=== PATIENT | female | born 2000 | race Caucasian/White ===

== ENCOUNTER 2020-04-26 20:34 | Inpatient (IN) | payer MEDICAID ==
[~2020-04-26] VITALS: Ht 160 cm; Wt 97.7 kg
[~2020-04-26 20:34] MED LIST: AUGMENTIN 875-11 TAB PO; CIPRO250 MG PO; PHENAZOPYRIDIN100 MG PO; SLEEPING MED; ZOLOFT100 MG PO
[2020-04-26] MEDS ORDERED: CARAFATE1 G PO (20:41)
[2020-04-26] MEDS ORDERED: SEROQUEL200 MG PO (20:41)
[2020-04-26] MEDS ORDERED: OMEPRAZOLE20 M1 PO (20:41)
[2020-04-26 21:34] VITALS: BP 123/83
[2020-04-26 21:36] LABS: BASOPHILS 0.3 % (0-2); EOSINOPHILS 0.7 % (0-7); HEMATOCRIT 38.9 % (36.0-48.0); HEMOGLOBIN 12.7 g/dL (12-16); IMMATURE GRANULOCYTES 0.4 % (0-5); LYMPHOCYTE ABS# 2.66 10x3/uL (1.18-3.74); LYMPHOCYTES 24.4 % (15-50); MCH 28.2 pg (26.0-34.0); MCHC 32.6 g/dL (31.0-37.0); MCV 86.3 fL (80.0-100.0); MEAN PLATELET VOLUME 8.6 fL (7.4-10.4); MONOCYTES 11.2 % (2-11); NEUTROPHIL ABS# 6.85 10x3/uL (1.56-6.13); PLATELET COUNT 336 10x3/uL (130-400); RBC 4.51 10x6/uL (4.00-5.40); RDW 13.4 % (11.5-14.5); WBC 10.9 10x3/uL (4.8-10.8)
[2020-04-26 21:42] LABS: PROTIME 12.2 SECONDS (11.6-15.0)
[2020-04-26 21:43] LABS: APTT 27.9 SECONDS (22.8-39.4)
[2020-04-26 21:44] LABS: D-DIMER-QUANTITATIVE 1.56 ug/mLFEU (0.20-0.54)
[2020-04-26 21:46] LABS: CALC OSMOLALITY 280 mosm/kg (275-300); CALCIUM 8.3 mg/dL (8.5-10.1); CARBON DIOXIDE 25.5 mmol/L (21.0-32.0); CHLORIDE - SERUM 106 mmol/L (98-107); GLUCOSE 87 mg/dL (74-106); HCG SERUM NEGATIVE (NEGATIVE); POTASSIUM - SERUM 3.5 mmol/L (3.5-5.1); SODIUM 141 mmol/L (136-145); UREA NITROGEN 14 mg/dL (7-18); eGFR NON AFRICAN AMERICAN 75 mL/min (90-120)
[2020-04-26 21:55] LABS: ALBUMIN 2.3 g/dL (3.4-5.0); ALKALINE PHOSPHATASE 93 U/L (30-120); ALT (SGPT) 30 U/L (10-68); PROTEIN - SERUM 7.2 g/dL (6.4-8.2)
[2020-04-26 21:57] LABS: BILIRUBIN - TOTAL 0.05 mg/dL (0.2-1.3); TROPONIN-I < 0.017 ng/mL (0.000-0.060)
[2020-04-26 22:34] VITALS: BP 133/61
[2020-04-26 23:34] VITALS: BP 133/61
[2020-04-27] VITALS (7 sets, daily range): BP systolic 113–142; BP diastolic 62–100; BMI 38.1
[2020-04-27] MEDS ORDERED: VIBRAMYCIN 100100 MG PO (00:59)
[2020-04-27] MEDS ORDERED: SPRINTEC 28 DA1 EAC1 PO (01:00)
[2020-04-27] MEDS ORDERED: COLACE100 MG PO (01:00)
[2020-04-27] MEDS ORDERED: SYMBICORT 80-10.2 GM INH (01:25)
[2020-04-27] MEDS ORDERED: ALBUTEROL SULF8.5 GM INH (01:25)
--- NOTE | 2020-04-27 02:55 | NUR ---
SUICIDE RISK ASSESSMENT COMPLETED. PT IN ACUTE PAIN DUE TO PE. NO SI FOR 2 YEARS. CURRENTLY HAS A BOYFRIEND AND TAKES CARE OF HER BROTHER. NO SELF CUTTING FOR 2 YEARS. DENIES SI. RESOURCE SHEET GIVEN TO PATIENT. RESOURCES REVIEWED WITH PATIENT AND SHE VERBALIZED UNDERSTANDING.
[2020-04-27 08:46] LABS: ALBUMIN 2.2 g/dL (3.4-5.0); ALKALINE PHOSPHATASE 83 U/L (30-120); ALT (SGPT) 28 U/L (10-68); CALC OSMOLALITY 272 mosm/kg (275-300); CHLORIDE - SERUM 102 mmol/L (98-107); CREATININE - SERUM 0.9 mg/dL (0.6-1.3); GLUCOSE 106 mg/dL (74-106); MAGNESIUM - SERUM 1.7 mg/dL (1.8-2.4); PHOSPHOROUS 3.4 mg/dL (2.5-4.9); POTASSIUM - SERUM 3.4 mmol/L (3.5-5.1); PROTEIN - SERUM 6.3 g/dL (6.4-8.2); SODIUM 137 mmol/L (136-145); UREA NITROGEN 11 mg/dL (7-18); eGFR NON AFRICAN AMERICAN 85 mL/min (90-120)
[2020-04-27 09:22] LABS: BASOPHILS 0.1 % (0-2); EOSINOPHILS 0.4 % (0-7); HEMATOCRIT 35.6 % (36.0-48.0); HEMOGLOBIN 11.8 g/dL (12-16); IMMATURE GRANULOCYTES 0.4 % (0-5); LYMPHOCYTE ABS# 2.39 10x3/uL (1.18-3.74); LYMPHOCYTES 20.3 % (15-50); MCH 28.4 pg (26.0-34.0); MCHC 33.1 g/dL (31.0-37.0); MCV 85.6 fL (80.0-100.0); MEAN PLATELET VOLUME 9.1 fL (7.4-10.4); MONOCYTES 10.3 % (2-11); NEUTROPHIL ABS# 8.08 10x3/uL (1.56-6.13); NEUTROPHILS 68.5 % (40-80); PLATELET COUNT 283 10x3/uL (130-400); RBC 4.16 10x6/uL (4.00-5.40); RDW 13.5 % (11.5-14.5); WBC 11.8 10x3/uL (4.8-10.8)
--- NOTE | 2020-04-27 09:26 | NUR ---
PER DR. ALONSO D/C MORPHINE SINCE PT STATES THAT IS NOT HELPING WITH HER PAIN. START 2MG OF DILAUDID PO Q4HPRN.
[2020-04-27 09:54] LABS: COMPLEMENT C4 24.7 mg/dL (17.4-52.2)
--- NOTE | 2020-04-27 13:34 | NUR ---
2MG OF DILAUDID GIVEN FOR PAIN LEVEL OF 8/10. ALSO HELPED PT UP TO CHAIR. PT DENIES ANY OTHER NEEDS AT THIS TIME. CALL LIGHT IN REACH.
--- NOTE | 2020-04-27 16:45 | NUR ---
PT STATES THAT PO DILAUDID IS NOT HELPING, WANTS TO KNOW IF SHE CAN HAVE THE MORPHINE INSTEAD. NOTIFIED JESSICA CHO AND HE STATED TO D/C DILAUDID AND START 2MG OF MORPHINE Q6PRN.
--- NOTE | 2020-04-27 19:41 | NUR ---
RECIEVED UP IN BED WITH EYES OPEN AND TV ON. COMPLAINING ABOUT BACK AND RIB PAIN. ASKED THIS NURSE TO CALL AND SEE IF SHE COULD HAVE SOMETHING FOR PAIN. SAID MORPHINE DOES'NT HELP HER AT ALL. CALLED GUILLE NINO WITH NEW ORDER FOR DILAUDID 0.25MG IV Q 6HRS PRN. REPORTED N.O TO PT AND SHE STATED " THAT STUFF DON'T WORK EITHER".
[2020-04-28 00:29] VITALS: BP 122/63
[2020-04-28 05:24] LABS: BASOPHILS 0.1 % (0-2); EOSINOPHILS 0.5 % (0-7); HEMOGLOBIN 11.4 g/dL (12-16); IMMATURE GRANULOCYTES 0.5 % (0-5); LYMPHOCYTE ABS# 2.14 10x3/uL (1.18-3.74); LYMPHOCYTES 24.3 % (15-50); MCH 27.8 pg (26.0-34.0); MCHC 32.6 g/dL (31.0-37.0); MCV 85.4 fL (80.0-100.0); MEAN PLATELET VOLUME 8.7 fL (7.4-10.4); MONOCYTES 12.3 % (2-11); NEUTROPHILS 62.3 % (40-80); PLATELET COUNT 299 10x3/uL (130-400); RDW 13.4 % (11.5-14.5)
[2020-04-28 05:37] LABS: WBC 8.8 10x3/uL (4.8-10.8)
[2020-04-28 05:38] VITALS: BP 113/73
[2020-04-28 05:45] LABS: CALC OSMOLALITY 271 mosm/kg (275-300); CARBON DIOXIDE 24.5 mmol/L (21.0-32.0); CHLORIDE - SERUM 102 mmol/L (98-107); CREATININE - SERUM 0.9 mg/dL (0.6-1.3); GLUCOSE 111 mg/dL (74-106); MAGNESIUM - SERUM 1.7 mg/dL (1.8-2.4); PHOSPHOROUS 3.3 mg/dL (2.5-4.9); POTASSIUM - SERUM 3.5 mmol/L (3.5-5.1); SODIUM 136 mmol/L (136-145); UREA NITROGEN 9 mg/dL (7-18); eGFR NON AFRICAN AMERICAN 85 mL/min (90-120)
[2020-04-28 08:39] VITALS: BP 121/64
[2020-04-28 08:50] VITALS: Ht 160 cm; Wt 97.7 kg
[2020-04-28 09:13] LABS: ANA REFLEX - DIRECT Negative (Negative)
[2020-04-28 11:11] LABS: ACLA - IGG AB <9 GPL U/mL (0-14); ACLA - IGM AB <9 MPL U/mL (0-12)
[2020-04-28 12:06] VITALS: BP 122/57
[2020-04-28 15:00] VITALS: BP 126/75
[2020-04-28 21:17] VITALS: BP 137/68
--- NOTE | 2020-04-28 21:22 | NUR ---
REPORT RECEIVED, WILL CONT POC. PT A&O, UP IN BED ON PHONE WITH FAMILY. NO S/S OF DISTRESS OBSERVED. RR EVEN & UNLABORED ON 3L NC. NOTED DIMINISHED LUNG SOUNDS IN RLL. PT REPORTS PAIN IN THIS AREA. WILL ADMIN PAIN MED PER EMAR. BED LOCKED AND LOWERED, CL IN REACH. ASSESSMENT COMPLETED AT THIS TIME. WILL CONT TO MONITOR.
[2020-04-29 01:46] VITALS: BP 120/74
[2020-04-29 05:40] VITALS: BP 120/67
[2020-04-29 06:26] LABS: BASOPHILS 0.1 % (0-2); EOSINOPHILS 1.1 % (0-7); HEMATOCRIT 37.7 % (36.0-48.0); HEMOGLOBIN 12.5 g/dL (12-16); IMMATURE GRANULOCYTES 0.6 % (0-5); LYMPHOCYTE ABS# 2.23 10x3/uL (1.18-3.74); LYMPHOCYTES 25.5 % (15-50); MCH 28.3 pg (26.0-34.0); MCHC 33.2 g/dL (31.0-37.0); MCV 85.3 fL (80.0-100.0); MONOCYTES 9.7 % (2-11); PLATELET COUNT 310 10x3/uL (130-400); RBC 4.42 10x6/uL (4.00-5.40); RDW 13.2 % (11.5-14.5); WBC 8.7 10x3/uL (4.8-10.8)
[2020-04-29 06:34] LABS: CALC OSMOLALITY 267 mosm/kg (275-300); CALCIUM 8.5 mg/dL (8.5-10.1); CHLORIDE - SERUM 102 mmol/L (98-107); CREATININE - SERUM 0.9 mg/dL (0.6-1.3); GLUCOSE 106 mg/dL (74-106); MAGNESIUM - SERUM 2.1 mg/dL (1.8-2.4); PHOSPHOROUS 3.9 mg/dL (2.5-4.9); POTASSIUM - SERUM 3.7 mmol/L (3.5-5.1); SODIUM 135 mmol/L (136-145); UREA NITROGEN 8 mg/dL (7-18); eGFR NON AFRICAN AMERICAN 85 mL/min (90-120)
[2020-04-29 07:54] VITALS: BP 136/76
[2020-04-29] MEDS ORDERED: ELIQUIS5 MG PO (08:58)
--- NOTE | 2020-04-29 09:47 | MORECARE ---
CASE MANAGEMENT DISCHARGE SUMMARY PATIENT: BRITTANEY BAÑUELOS UNIT: [id number] ADM DATE: 04/27/20 AGE: 19 : 99 SEX: F ROOM/BED: D.[facility] AUTHOR: TRENT,DOC PHYSICIAN: REFERRING PHYSICIAN: SAUL TREADWELL MD DATE OF SERVICE: 04/29/20 Case Management Discharge Planning Summary DCP REVIEW SUMMARY ANTICIPATED D/C DATE: 04/29/2020 EXPECTED LOS : 2 CASE STATUS: DCP Initiated INITIAL REVIEW: 04/29/2020 INITIAL REVIEWER: Susan Ruiz FINAL DISCHARGE DISPOSITION: : FINAL REVIEWER: FINAL REVIEW DATE: DCP Focus Questions & Answers - Added on: QUESTION: ANSWER : PATIENT: BRITTANEY BAÑUELOS ENCOUNTER: [id number] MEDICAL RECORD#: [id number] ADMISSION DATE: 04/27/2020 DISCHARGE DATE: ATTENDING MD: : AGE: 19 MARITAL STATUS: S DC PLAN ID: [id number] FACILITY: [facility] PRINTED ON: 04/29/20 9:47 CT All edits/amendments must be made on the electronic document DICTATION DATE: 04/29/20946 RUBBER BALL FINISHER: DM 04/29/20946 RPT#: [id number] DC DATE: STATUS: ADM IN [facility] [address] [place] [address] END OF REPORT
--- NOTE | 2020-04-29 09:59 | MORECARE ---
CASE MANAGEMENT DISCHARGE SUMMARY PATIENT: BRITTANEY BAÑUELOS UNIT: [id number] ADM DATE: 04/27/20 AGE: 19 : 99 SEX: F ROOM/BED: D.5142 AUTHOR: TRENT,DOC PHYSICIAN: REFERRING PHYSICIAN: SAUL TREADWELL MD DATE OF SERVICE: 04/29/20 Case Management Discharge Planning Summary COMMENTS ENTERED DATE: 04/29/20 9:51 CT COMMENT TYPE: Discharge Planning REVIEWER: Susan Ruiz CM met with patient to discuss discharge planning/needs, she is alone in the room. She has oxygen on at 2 liters NC, I have asked RT for a walk test. She states she is independent with all care. She lives with her boyfriend and 2 others and feels it is safe to discharge back home. She states is her PCP. She uses [facility] on [address] for her medication. 30 day free trial of Eliquis coupon given to patient and explained to use on first Rx fill only. She declines further needs at this time. Home today. DCP REVIEW SUMMARY ANTICIPATED D/C DATE: 04/29/2020 EXPECTED LOS : 2 CASE STATUS: DCP Initiated INITIAL REVIEW: 04/29/2020 INITIAL REVIEWER: Susan Ruiz FINAL DISCHARGE DISPOSITION: : FINAL REVIEWER: FINAL REVIEW DATE: DCP Focus Questions & Answers DCP REV -DCP Review Added on: 04/29/20 9:48 am QUESTION: ANSWER DCP Screen High Risk Factors: : None Walking limitation: Patient stated self rated walking limitation present? : No Age: : 17 - 43 Prior living environment: : Lives with others Disability ranking: : Grade 1: No significant disability DCP Evaluation Patient's ability to cope with chronic illness : d. No chronic illness Mental health screen: : No mental health history Would patient like to participate in any Care Coordination programs (if applicable): : Not applicable Patient gives permission to discuss discharge plans with: (name, relationship and number) : Oniel julian - [phone] Physical Status: : Independent with ADL's Baseline cognitive status: : *Oriented to person, place, situation, time and present Living Arrangements: : Home with Spouse/Significant Other Living arrangements comments: : Lives with boyfriend and 2 others Pharmacy name(s): : [facility] on [address] Does Patient have transportation to get home and to follow-up medical appointments when discharged from the hospital? : Yes Comments: : Boyfriend to drive her Equipment in use: : None Patient's current cognitive status: : *Oriented to person, place, situation, time and present Functional screen assessment: : No issues identified Patient with capacity for self-care or can be cared for in same environment as prior to hospitalization? : Yes Is there a likelihood that the patient will require additional services to return to the preadmission environment? : No Results of this evaluation have been discussed with: : Patient DCP Re-evaluation Would patient like to participate in any Care Coordination programs (if applicable): : Not applicable PATIENT: BRITTANEY BAÑUELOS ENCOUNTER: [id number] MEDICAL RECORD#: [id number] ADMISSION DATE: 04/27/2020 DISCHARGE DATE: ATTENDING MD: ASA: AGE: 19 MARITAL STATUS: S DC PLAN ID: [id number] FACILITY: [facility] PRINTED ON: 04/29/20 9:58 CT All edits/amendments must be made on the electronic document DICTATION DATE: 04/29/20957 PHOTOGRAPHIC EQUIPMENT MECHANIC: GENE 04/29/20957 RPT#: [id number] DC DATE: STATUS: ADM IN [facility] [address] [place] [address] END OF REPORT
--- NOTE | 2020-04-29 10:09 | NUR ---
02 SAT 98% ON RA AT REST AND 95% DURING AMBULATION. IV AND TELEMTETRY DCD DC PLANS GIVEN. UNDERSTANDING VOICED.
--- NOTE | 2020-04-29 10:21 | NUR ---
ESCORTED TO CAR BY W/C.
--- NOTE | 2020-04-29 10:23 | MORECARE ---
CASE MANAGEMENT DISCHARGE SUMMARY PATIENT: BRITTANEY BAÑUELOS UNIT: [id number] ADM DATE: 04/27/20 AGE: 19 : 99 SEX: F ROOM/BED: D.3102 AUTHOR: TRENT,DOC PHYSICIAN: REFERRING PHYSICIAN: SAUL TREADWELL MD DATE OF SERVICE: 04/29/20 Case Management Discharge Planning Summary COMMENTS ENTERED DATE: 04/29/20 9:51 CT COMMENT TYPE: Discharge Planning REVIEWER: Susan Ruiz CM met with patient to discuss discharge planning/needs, she is alone in the room. She has oxygen on at 2 liters NC, I have asked RT for a walk test. She states she is independent with all care. She lives with her boyfriend and 2 others and feels it is safe to discharge back home. She states is her PCP. She uses [facility] on [address] for her medication. 30 day free trial of Eliquis coupon given to patient and explained to use on first Rx fill only. She declines further needs at this time. Home today. DCP REVIEW SUMMARY ANTICIPATED D/C DATE: 04/29/2020 EXPECTED LOS : 2 CASE STATUS: DCP Initiated INITIAL REVIEW: 04/29/2020 INITIAL REVIEWER: Susan Ruiz FINAL DISCHARGE DISPOSITION: : FINAL REVIEWER: FINAL REVIEW DATE: DCP Focus Questions & Answers DCP REV -DCP Review Added on: 04/29/20 9:48 am QUESTION: ANSWER DCP Screen High Risk Factors: : None Walking limitation: Patient stated self rated walking limitation present? : No Age: : 17 - 43 Prior living environment: : Lives with others Disability ranking: : Grade 1: No significant disability DCP Evaluation Patient's ability to cope with chronic illness : d. No chronic illness Mental health screen: : No mental health history Would patient like to participate in any Care Coordination programs (if applicable): : Not applicable Patient gives permission to discuss discharge plans with: (name, relationship and number) : Oniel julian - [phone] Physical Status: : Independent with ADL's Baseline cognitive status: : *Oriented to person, place, situation, time and present Living Arrangements: : Home with Spouse/Significant Other Living arrangements comments: : Lives with boyfriend and 2 others Pharmacy name(s): : [facility] on [address] Does Patient have transportation to get home and to follow-up medical appointments when discharged from the hospital? : Yes Comments: : Boyfriend to drive her Equipment in use: : None Patient's current cognitive status: : *Oriented to person, place, situation, time and present Functional screen assessment: : No issues identified Patient with capacity for self-care or can be cared for in same environment as prior to hospitalization? : Yes Is there a likelihood that the patient will require additional services to return to the preadmission environment? : No Results of this evaluation have been discussed with: : Patient DCP Re-evaluation Would patient like to participate in any Care Coordination programs (if applicable): : Not applicable PATIENT: BRITTANEY BAÑUELOS ENCOUNTER: [id number] MEDICAL RECORD#: [id number] ADMISSION DATE: 04/27/2020 DISCHARGE DATE: 04/29/2020 ATTENDING MD: ASA: AGE: 19 MARITAL STATUS: S DC PLAN ID: [id number] FACILITY: [facility] PRINTED ON: 04/29/20 10:23 CT All edits/amendments must be made on the electronic document DICTATION DATE: 04/29/20 1023 BAIT TIER: DM 04/29/20 1023 RPT#: [id number] DC DATE:04/29/20 STATUS: DIS IN [facility] [address] [place] [address] END OF REPORT
[2020-04-29 13:12] LABS: MITOCHONDRIAL ANTIBODY <20.0 Units (0.0-20.0)
[2020-04-29 16:10] LABS: ANCA - ANTIMYELOPEROXIDASE <9.0 U/mL (0.0-9.0); ANCA - ANTIPROTEINASE 3 11.2 U/mL (0.0-3.5); ANCA - ATYPICAL <1:20 titer (Neg:<1:20); ANCA - CYTOPLASMIC <1:20 titer (Neg:<1:20); ANCA - PERINUCLEAR <1:20 titer (Neg:<1:20)
--- NOTE | 2020-04-29 17:22 | MORECARE ---
CASE MANAGEMENT DISCHARGE SUMMARY PATIENT: BRITTANEY BAÑUELOS UNIT: [id number] ADM DATE: 04/27/20 AGE: 19 : 99 SEX: F ROOM/BED: D.1212 AUTHOR: TRENT,DOC PHYSICIAN: REFERRING PHYSICIAN: SAUL TREADWELL MD DATE OF SERVICE: 04/29/20 Case Management Discharge Planning Summary COMMENTS ENTERED DATE: 04/29/20 9:51 CT COMMENT TYPE: Discharge Planning REVIEWER: Susan Ruiz CM met with patient to discuss discharge planning/needs, she is alone in the room. She has oxygen on at 2 liters NC, I have asked RT for a walk test. She states she is independent with all care. She lives with her boyfriend and 2 others and feels it is safe to discharge back home. She states is her PCP. She uses [facility] on [address] for her medication. 30 day free trial of Eliquis coupon given to patient and explained to use on first Rx fill only. She declines further needs at this time. Home today. DCP REVIEW SUMMARY ANTICIPATED D/C DATE: 04/29/2020 EXPECTED LOS : 2 CASE STATUS: DCP Initiated INITIAL REVIEW: 04/29/2020 INITIAL REVIEWER: Susan Ruiz FINAL DISCHARGE DISPOSITION: : FINAL REVIEWER: FINAL REVIEW DATE: DCP Focus Questions & Answers DCP REV -DCP Review Added on: 04/29/20 9:48 am QUESTION: ANSWER DCP Screen High Risk Factors: : None Walking limitation: Patient stated self rated walking limitation present? : No Age: : 17 - 43 Prior living environment: : Lives with others Disability ranking: : Grade 1: No significant disability DCP Evaluation Patient's ability to cope with chronic illness : d. No chronic illness Mental health screen: : No mental health history Would patient like to participate in any Care Coordination programs (if applicable): : Not applicable Patient gives permission to discuss discharge plans with: (name, relationship and number) : Oniel julian - [phone] Physical Status: : Independent with ADL's Baseline cognitive status: : *Oriented to person, place, situation, time and present Living Arrangements: : Home with Spouse/Significant Other Living arrangements comments: : Lives with boyfriend and 2 others Pharmacy name(s): : [facility] on [address] Does Patient have transportation to get home and to follow-up medical appointments when discharged from the hospital? : Yes Comments: : Boyfriend to drive her Equipment in use: : None Patient's current cognitive status: : *Oriented to person, place, situation, time and present Functional screen assessment: : No issues identified Patient with capacity for self-care or can be cared for in same environment as prior to hospitalization? : Yes Is there a likelihood that the patient will require additional services to return to the preadmission environment? : No Results of this evaluation have been discussed with: : Patient DCP Re-evaluation Would patient like to participate in any Care Coordination programs (if applicable): : Not applicable PATIENT: BRITTANEY BAÑUELOS ENCOUNTER: [id number] MEDICAL RECORD#: [id number] ADMISSION DATE: 04/27/2020 DISCHARGE DATE: 04/29/2020 ATTENDING MD: ASA: AGE: 19 MARITAL STATUS: S DC PLAN ID: [id number] FACILITY: [facility] PRINTED ON: 04/29/20 17:22 CT All edits/amendments must be made on the electronic document DICTATION DATE: 04/29/201721 LAB DIRECTOR: GENE 04/29/201721 RPT#: [id number] DC DATE:04/29/20 STATUS: DIS IN [facility] [address] [place] [address] END OF REPORT
[2020-04-30 03:08] LABS: LUPUS - INTERPRETATION Comment: (()); LUPUS - THROMBIN TIME 15.6 sec (0.0-23.0); LUPUS - dRVVT 33.4 sec (0.0-47.0); PTT-LA 40.1 sec (0.0-51.9)
[2020-04-30 09:13] LABS: PROTEIN S - FREE 45 % (57-157); PROTEIN S - FUNCTIONAL 40 % (63-140); PROTEIN S - TOTAL 68 % (60-150)
[2020-04-30 15:12] LABS: FACTOR II DNA ANALYSIS Negative (())
[2020-05-01 09:12] LABS: ANTITHROMBIN III ACTIVITY 109 % (75-135); PLASMINOGEN ACTIVITY 150 % (70-150)
[2020-05-01 13:12] LABS: PROTEIN C - ANTIGEN 112 % (60-150); PROTEIN C - FUNCTIONAL 138 % (73-180)
== END 2020-04-29 10:22 | disposition home or self-care (01) | DRG 175 ==
LOC: D.ER 20:34 → D.M2 04-27 00:21
PROVIDERS: Family Medicine; Internal Medicine Hematology & Oncology; ADMIT Family Medicine; ATTEND Family Medicine
DX: I26.99 Other pulmonary embolism without acute cor pulmonale (principal); J18.9 Pneumonia, unspecified organism; A04.8 Other specified bacterial intestinal infections; F41.8 Other specified anxiety disorders; J45.909 Unspecified asthma, uncomplicated; F43.12 Post-traumatic stress disorder, chronic

== ENCOUNTER 2020-05-04 23:49 | Emergency (ER) | payer MEDICAID ==
[~2020-05-04] VITALS: Ht 160 cm; Wt 97.7 kg
[~2020-05-04 23:49] MED LIST changes: +ALBUTEROL SULF8.5 GM INH; +CARAFATE1 G PO; +COLACE100 MG PO; +ELIQUIS5 MG PO; +OMEPRAZOLE20 M1 PO; +SEROQUEL200 MG PO; +SPRINTEC 28 DA1 EAC1 PO; +SYMBICORT 80-10.2 GM INH; +VIBRAMYCIN 100100 MG PO
[2020-05-04 23:52] VITALS: Ht 160 cm; Wt 97.7 kg
[2020-05-04] MEDS ORDERED: PEPCID40 MG PO (23:56)
[2020-05-04] MEDS ORDERED: FLAGYL 375375 MG PO (23:57)
[2020-05-04] MEDS ORDERED: PEPTO-BISMOL262 M1 PO (23:58)
[2020-05-05 01:19] VITALS: BP 137/84
== END 2020-05-05 01:20 | disposition home or self-care (01) ==
LOC: D.ER 23:49
DX: I26.99 Other pulmonary embolism without acute cor pulmonale (principal); J45.909 Unspecified asthma, uncomplicated

== ENCOUNTER → 2020-05-08 08:09 | Outpatient (CLI) | payer MEDICAID ==
[2020-05-04 23:52] VITALS: BMI 38.1
[~2020-05-08 08:09] MED LIST changes: +FLAGYL 375375 MG PO; +PEPCID40 MG PO; +PEPTO-BISMOL262 M1 PO
== END | disposition home or self-care (01) ==
LOC: D.US
PROVIDERS: ATTEND Internal Medicine Gastroenterology
DX: R11.0 Nausea (principal); R10.84 Generalized abdominal pain

== ENCOUNTER → 2020-06-17 17:08 | Outpatient (CLI) | payer MEDICAID ==
[2020-05-04 23:52] VITALS: BMI 38.1
[2020-06-17 17:31] LABS: HCG SERUM POSITIVE (NEGATIVE)
[2020-06-17 17:42] LABS: ALBUMIN 2.8 g/dL (3.4-5.0); ALKALINE PHOSPHATASE 88 U/L (30-120); ALT (SGPT) 44 U/L (10-68); BILIRUBIN - TOTAL 0.15 mg/dL (0.2-1.3); CARBON DIOXIDE 21.9 mmol/L (21.0-32.0); CHLORIDE - SERUM 105 mmol/L (98-107); POTASSIUM - SERUM 4.2 mmol/L (3.5-5.1); PROTEIN - SERUM 7.3 g/dL (6.4-8.2); SODIUM 137 mmol/L (136-145); UREA NITROGEN 12 mg/dL (7-18)
[2020-06-17 17:59] LABS: CALC OSMOLALITY 273 mosm/kg (275-300); CALCIUM 8.4 mg/dL (8.5-10.1); CREATININE - SERUM 0.8 mg/dL (0.6-1.3); GLUCOSE 95 mg/dL (74-106); eGFR NON AFRICAN AMERICAN > 90 mL/min (90-120)
[2020-06-18 11:40] LABS: HCG - QUANTITATIVE (MATERNAL) 41 mIU/mL
== END | disposition home or self-care (01) ==
LOC: D.LABREF 17:08
PROVIDERS: ATTEND Internal Medicine Hematology & Oncology
DX: D68.59 Other primary thrombophilia (principal); I26.09 Other pulmonary embolism with acute cor pulmonale; I26.99 Other pulmonary embolism without acute cor pulmonale

== ENCOUNTER 2020-08-09 21:15 | Emergency (ER) | payer MEDICAID ==
[~2020-08-09] VITALS: Ht 160 cm; Wt 104.3 kg
[2020-08-09 21:17] VITALS: BP 115/91; Ht 160 cm; Wt 104.3 kg
[2020-08-09 22:21] LABS: BASOPHILS 0.3 % (0-2); EOSINOPHILS 0.8 % (0-7); HEMATOCRIT 36.1 % (36.0-48.0); HEMOGLOBIN 12.2 g/dL (12-16); MCHC 33.7 g/dL (31.0-37.0); MEAN PLATELET VOLUME 7.6 fL (7.4-10.4); MONOCYTES 9.3 % (2-11); NEUTROPHILS 62.6 % (40-80); PLATELET COUNT 339 10x3/uL (130-400); RBC 4.34 10x6/uL (4.00-5.40); RDW 14.8 % (11.5-14.5); WBC 6.5 10x3/uL (4.8-10.8)
[2020-08-09 22:34] LABS: CALC OSMOLALITY 276 mosm/kg (275-300); CALCIUM 8.3 mg/dL (8.5-10.1); CARBON DIOXIDE 23.4 mmol/L (21.0-32.0); CHLORIDE - SERUM 106 mmol/L (98-107); CREATININE - SERUM 0.6 mg/dL (0.6-1.3); GLUCOSE 106 mg/dL (74-106); POTASSIUM - SERUM 3.4 mmol/L (3.5-5.1); SODIUM 140 mmol/L (136-145); UREA NITROGEN 8 mg/dL (7-18); eGFR NON AFRICAN AMERICAN > 90 mL/min (90-120)
[2020-08-09 22:41] LABS: BILIRUBIN NEGATIVE (NEGATIVE); KETONE 1+ mg/dL (< 1+); NITRITE NEGATIVE (NEGATIVE); PH 6.5 (5.0-8.0); UROBILINOGEN NORMAL mg/dL (< 2)
[2020-08-09 23:22] LABS: ALBUMIN 2.6 g/dL (3.4-5.0); ALKALINE PHOSPHATASE 74 U/L (30-120); ALT (SGPT) 35 U/L (10-68); HCG - QUANTITATIVE (MATERNAL) 38028 mIU/mL; LIPASE 83 U/L (73-393); PROTEIN - SERUM 7.1 g/dL (6.4-8.2)
== END 2020-08-09 23:57 | disposition home or self-care (01) ==
LOC: D.ER 21:15
PROVIDERS: Family Medicine
DX: O26.891 Other specified pregnancy related conditions, first trimester (principal); R10.9 Unspecified abdominal pain; E78.5 Hyperlipidemia, unspecified; Z3A.09 9 weeks gestation of pregnancy